=== PATIENT | male | born 1985 | race Caucasian/White ===

== ENCOUNTER 2019-12-28 08:22 | Emergency (ER) | payer SELFPAY ==
[~2019-12-28] VITALS: Ht 170.2 cm; Wt 65.8 kg
[2019-12-28 08:28] VITALS: Ht 170.2 cm; Wt 65.8 kg
[2019-12-28 09:06] LABS: BASOPHIL % 0.3 % (0-2); PLATELET COUNT 255 x10^3mcL (130-400); RED CELL DISTRIBUTION WIDTH 13.3 % (11.5-14.5)
[2019-12-28 09:28] LABS: CALCIUM 9.4 mg/dL (8.5-10.1); CARBON DIOXIDE 25.4 mmol/L (21-32); CHLORIDE SERUM 103 mmol/L (98-107); GFR1 > 60 mL/min; GLUCOSE SERUM 124 mg/dL (74-106); POTASSIUM SERUM 3.8 mmol/L (3.5-5.1); SODIUM SERUM 139 mmol/L (136-145)
[2019-12-28 09:32] LABS: ALBUMIN 4.1 g/dL (3.4-5.0); ALKALINE PHOSPHATASE 66 U/L (46-116); ALT/SGPT 26 U/L (16-63); AST/SGOT 14 U/L (15-37); BILIRUBIN TOTAL 0.9 mg/dL (0.20-1.00); TOTAL PROTEIN, SERUM 7.5 g/dL (6.4-8.2)
[2019-12-28 10:02] VITALS: BP 129/81
== END 2019-12-28 10:02 | disposition home or self-care (01) ==
LOC: ED 08:22
PROVIDERS: Emergency Medicine
DX: F12.988 Cannabis use, unspecified with other cannabis-induced disorder (principal)
CPT/HCPCS: J1200; J1630

== ENCOUNTER 2020-02-17 08:59 | Emergency (ER) | payer MEDICAID ==
[~2020-02-17] VITALS: Ht 170.2 cm; Wt 68.0 kg
[~2020-02-17 08:59] MED LIST: ELA25 PO; PRILOSEC OTC20 M1 PO; ZOF4 PO
[2020-02-17 09:02] VITALS: Ht 170.2 cm; Wt 68.0 kg
[2020-02-17 09:49] LABS: BASOPHIL % 0.3 % (0-2); PLATELET COUNT 305 x10^3mcL (130-400)
[2020-02-17 09:55] LABS: CARBON DIOXIDE 24.7 mmol/L (21-32); CHLORIDE SERUM 100 mmol/L (98-107); CREATININE SERUM 0.9 mg/dL (0.7-1.3); GFR1 > 60 mL/min; GLUCOSE SERUM 124 mg/dL (74-106); POTASSIUM SERUM 3.1 mmol/L (3.5-5.1); SODIUM SERUM 136 mmol/L (136-145)
[2020-02-17 09:59] LABS: ALBUMIN 4.6 g/dL (3.4-5.0); ALKALINE PHOSPHATASE 76 U/L (46-116); ALT/SGPT 22 U/L (16-63); AST/SGOT 7 U/L (15-37); BILIRUBIN TOTAL 1.67 mg/dL (0.20-1.00); LIPASE 60 IU/L (73-393); TOTAL PROTEIN, SERUM 8.2 g/dL (6.4-8.2)
[2020-02-17 14:26] VITALS: BP 114/70
[2020-02-17 14:44] LABS: microscopic required? YES; urine erythrocyte NEGATIVE (NEGATIVE)
[2020-02-17 14:55] LABS: AMPHETAMINE QUAL UR NONE DETECTED (See below)
== END 2020-02-17 14:26 | disposition home or self-care (01) ==
LOC: ED 08:59
PROVIDERS: Emergency Medicine
DX: R10.13 Epigastric pain (principal); R11.10 Vomiting, unspecified
CPT/HCPCS: J2060; J2765; J3490; J7030

== ENCOUNTER 2020-02-18 03:54 | Emergency (ER) | payer MEDICAID ==
[~2020-02-18] VITALS: Ht 170.2 cm; Wt 65.8 kg
[2020-02-18 04:02] VITALS: Ht 170.2 cm; Wt 65.8 kg
[2020-02-18 05:46] LABS: BASOPHIL % 0.1 % (0-2); PLATELET COUNT 305 x10^3mcL (130-400); RED CELL DISTRIBUTION WIDTH 13.9 % (11.5-14.5)
[2020-02-18 05:59] LABS: ALBUMIN 4.5 g/dL (3.4-5.0); ALKALINE PHOSPHATASE 68 U/L (46-116); ALT/SGPT 22 U/L (16-63); AST/SGOT 10 U/L (15-37); BILIRUBIN TOTAL 1.69 mg/dL (0.20-1.00); CALCIUM 9.2 mg/dL (8.5-10.1); CARBON DIOXIDE 27.2 mmol/L (21-32); CHLORIDE SERUM 96 mmol/L (98-107); CREATININE SERUM 0.9 mg/dL (0.7-1.3); GFR1 > 60 mL/min; GLUCOSE SERUM 128 mg/dL (74-106); LIPASE 54 IU/L (73-393); SODIUM SERUM 135 mmol/L (136-145)
[2020-02-18 10:24] VITALS: BP 125/79
[2020-02-18 11:03] LABS: AMPHETAMINE QUAL UR NONE DETECTED (See below)
== END 2020-02-18 10:24 | disposition home or self-care (01) ==
LOC: ED 03:54
PROVIDERS: Emergency Medicine
DX: K25.9 Gastric ulcer, unspecified as acute or chronic, without hemorrhage or perforation (principal); E87.6 Hypokalemia
CPT/HCPCS: C9113; J2405; J3480

== ENCOUNTER 2020-06-08 11:50 | Emergency (ER) | payer MEDICAID ==
[~2020-06-08] VITALS: Ht 170.2 cm; Wt 63.5 kg
[2020-06-08 12:04] VITALS: Ht 170.2 cm; Wt 63.5 kg
[2020-06-08 13:10] LABS: BASOPHIL % 0.7 % (0-2); PLATELET COUNT 304 x10^3mcL (130-400); RED CELL DISTRIBUTION WIDTH 13.9 % (11.5-14.5)
[2020-06-08 13:12] LABS: CALCIUM 10.2 mg/dL (8.5-10.1); CARBON DIOXIDE 24.4 mmol/L (21-32); CHLORIDE SERUM 96 mmol/L (98-107); GFR1 > 60 mL/min; GLUCOSE SERUM 98 mg/dL (74-106); POTASSIUM SERUM 3.3 mmol/L (3.5-5.1); SODIUM SERUM 133 mmol/L (136-145)
[2020-06-08 13:17] LABS: ALBUMIN 4.4 g/dL (3.4-5.0); ALKALINE PHOSPHATASE 74 U/L (46-116); ALT/SGPT 24 U/L (16-63); AST/SGOT 11 U/L (15-37); BILIRUBIN TOTAL 2.3 mg/dL (0.20-1.00); LIPASE 540 IU/L (73-393); TOTAL PROTEIN, SERUM 8.2 g/dL (6.4-8.2)
[2020-06-08 16:00] VITALS: BP 115/63
== END 2020-06-08 16:00 | disposition home or self-care (01) ==
LOC: ED 11:50
PROVIDERS: Emergency Medicine
DX: K85.90 Acute pancreatitis without necrosis or infection, unspecified (principal); R10.9 Unspecified abdominal pain; R11.2 Nausea with vomiting, unspecified; Z20.828 Contact with and (suspected) exposure to other viral communicable diseases
CPT/HCPCS: J1630; J7030

== ENCOUNTER 2020-06-09 04:58 | Inpatient (IN) | payer MEDICAID ==
[~2020-06-09] VITALS: Ht 152.4 cm; Wt 63.5 kg
[2020-06-09 05:02] VITALS: Ht 152.4 cm; Wt 63.5 kg
[2020-06-09 06:00] LABS: BASOPHIL % 0.3 % (0-2); PLATELET COUNT 269 x10^3mcL (130-400); RED CELL DISTRIBUTION WIDTH 13.5 % (11.5-14.5)
[2020-06-09 06:05] LABS: CALCIUM 8.5 mg/dL (8.5-10.1); CARBON DIOXIDE 29.8 mmol/L (21-32); CHLORIDE SERUM 98 mmol/L (98-107); CREATININE SERUM 1.1 mg/dL (0.7-1.3); GFR1 > 60 mL/min; GLUCOSE SERUM 111 mg/dL (74-106); POTASSIUM SERUM 3.3 mmol/L (3.5-5.1); SODIUM SERUM 136 mmol/L (136-145)
[2020-06-09 06:13] LABS: ALBUMIN 3.9 g/dL (3.4-5.0); ALKALINE PHOSPHATASE 65 U/L (46-116); ALT/SGPT 26 U/L (16-63); AST/SGOT 30 U/L (15-37); BILIRUBIN TOTAL 2.16 mg/dL (0.20-1.00); LIPASE 87 IU/L (73-393); TOTAL PROTEIN, SERUM 7.4 g/dL (6.4-8.2)
[2020-06-09 09:59] VITALS: BP 123/77
[2020-06-09 10:44] LABS: T3 TOTAL 1.28 ng/mL
[2020-06-09 11:14] LABS: CHOLESTEROL/HDL RATIO 4.2; MAGNESIUM 2.3 mg/dL (1.8-2.4)
[2020-06-09 11:24] LABS: FREE THYROXINE INDEX 2.8 ug/dL (1.4-4.5); T4(THYROXINE) 8.7 ug/dL (4.7-13.3)
[2020-06-09 11:57] VITALS: BP 123/77
[2020-06-09 11:58] LABS: PHOSPHOROUS 3.3 mg/dL (2.5-4.9)
[2020-06-09 12:04] LABS: FREE T4 1.22 ng/dL (0.76-1.46)
[2020-06-09 14:39] VITALS: BP 120/74
[2020-06-09 16:06] VITALS: BP 133/80
== END 2020-06-09 16:45 | disposition home or self-care (01) | DRG 241 ==
LOC: ED 04:58 → DU 07:29
PROVIDERS: Emergency Medicine; ADMIT Internal Medicine; ATTEND Internal Medicine
DX: K25.4 Chronic or unspecified gastric ulcer with hemorrhage (principal); D72.829 Elevated white blood cell count, unspecified; K21.9 Gastro-esophageal reflux disease without esophagitis; E87.6 Hypokalemia
CPT/HCPCS: 84439; C9113; G0378; J0696; J2270; J2354; J2405; J3480; J7030; J7050; J7060

== ENCOUNTER 2020-06-09 20:09 | Emergency (ER) | payer MEDICAID ==
[~2020-06-09] VITALS: Ht 170.2 cm; Wt 64.9 kg
[2020-06-09 20:19] VITALS: Ht 170.2 cm; Wt 64.9 kg
[2020-06-09 21:03] LABS: BASOPHIL % 0.9 % (0-2); PLATELET COUNT 280 x10^3mcL (130-400); RED CELL DISTRIBUTION WIDTH 13.5 % (11.5-14.5)
[2020-06-09 21:15] LABS: CALCIUM 8.8 mg/dL (8.5-10.1); CARBON DIOXIDE 28.5 mmol/L (21-32); CHLORIDE SERUM 101 mmol/L (98-107); GFR1 > 60 mL/min; GLUCOSE SERUM 126 mg/dL (74-106); POTASSIUM SERUM 3.2 mmol/L (3.5-5.1); SODIUM SERUM 138 mmol/L (136-145)
[2020-06-09 21:20] LABS: ALBUMIN 3.9 g/dL (3.4-5.0); ALKALINE PHOSPHATASE 68 U/L (46-116); ALT/SGPT 22 U/L (16-63); AST/SGOT 13 U/L (15-37); BILIRUBIN TOTAL 1.9 mg/dL (0.20-1.00); TOTAL PROTEIN, SERUM 7.4 g/dL (6.4-8.2)
[2020-06-09 23:01] VITALS: BP 117/66
[2020-06-09 23:56] LABS: AMPHETAMINE QUAL UR NONE DETECTED (See below)
== END 2020-06-09 23:00 | disposition home or self-care (01) ==
LOC: ED 20:09
PROVIDERS: Specialist
DX: R10.816 Epigastric abdominal tenderness (principal); R11.10 Vomiting, unspecified; R19.7 Diarrhea, unspecified; F12.10 Cannabis abuse, uncomplicated; F10.21 Alcohol dependence, in remission
CPT/HCPCS: G0480; J2270; J2405; J3490; Q0092